=== PATIENT | female | born 1990 | race Two or more races ===

== ENCOUNTER 2025-02-14 10:59 | Outpatient (CLI) | payer OTHER | END 2025-02-14 11:00 | disposition home or self-care (01) | LOC: PRENATAL 10:59 | PROVIDERS: ATTEND Obstetrics & Gynecology Maternal & Fetal Medicine | DX: O44.00 Complete placenta previa NOS or without hemorrhage, unspecified trimester (principal); O09.519 Supervision of elderly primigravida, unspecified trimester; Z36.0 Encounter for antenatal screening for chromosomal anomalies; Z3A.20 20 weeks gestation of pregnancy ==